=== PATIENT | male | born 1980 | race Caucasian/White ===

== ENCOUNTER 2021-10-27 14:31 | Emergency (ER) | payer BC ==
[~2021-10-27] VITALS: Ht 175.3 cm; Wt 74.0 kg
[2021-10-27 14:40] VITALS: BP_DIAS 67
[2021-10-27] MEDS ORDERED: ONDANSETRON HCL 4MG/2ML INJ IV STA (14:59)
[2021-10-27] MEDS ORDERED: SODIUM CHLORIDE 0.9% 1,000 ML IV ONE (15:00)
[2021-10-27 16:17] LABS: BASOPHILS % 0.6 % (0.0-2.0); EOSINOPHILS % 0.9 % (0.0-5.0); HEMATOCRIT. 46.1 % (42.0-52.0); HEMOGLOBIN. 15.7 g/dL (14.0-18.0); MEAN CORPUSCULAR HEMOGLOBIN 29.8 pg (28.0-32.0); MEAN CORPUSCULAR VOLUME 87.8 fL (80.0-94.0); MEAN PLATELET VOLUME 8.7 fl (7.4-10.4); MONOCYTES % 3.5 % (2.0-8.0); PLATELET 239 x1000/uL (130-400); RED BLOOD CELL COUNT 5.25 mill/uL (4.7-6.1); RED CELL DISTRIBUTION WIDTH 13.5 % (11.6-14.6)
[2021-10-27 16:18] LABS: CHLORIDE 108 mEq/L (98-107)
[2021-10-27 16:28] LABS: ETHANOL BLOOD 217 mg/dL
[2021-10-27] MEDS ORDERED: POTASSIUM CHLORIDE 20MEQ TABLET SR PO ONE (17:00)
[2021-10-27 19:34] VITALS: BP_SYST 132
== END 2021-10-27 19:39 | disposition home or self-care (01) ==
LOC: ER 14:38
DX: R11.2 Nausea with vomiting, unspecified (principal); F10.129 Alcohol abuse with intoxication, unspecified; Y90.7 Blood alcohol level of 200-239 mg/100 ml
CPT/HCPCS: 36415; 80053; 80320; 85025; 96361; 96374; 99283; J2405; J7030; G0480